=== PATIENT | male | born 1980 | race Caucasian/White ===

== ENCOUNTER 2018-08-23 10:48 | Day surgery (SDC) | payer OTHER ==
[2018-08-23] MEDS ORDERED: SUCCINYLCHOLINE CHLORIDE 100 MG/5 ML SYG IV (13:35)
[2018-08-23] MEDS ORDERED: PROPOFOL 20 ML (13:35)
[2018-08-23] MEDS ORDERED: CEFAZOLIN 1 GM INJ (13:35)
[2018-08-23] MEDS ORDERED: LIDOCAINE 100 MG SYRINGE (13:35)
[2018-08-23] MEDS ORDERED: ONDANSETRON 4 MG INJ (13:37)
[2018-08-23] MEDS ORDERED: ROCURONIUM 50 MG INJ (13:38)
[2018-08-23] MEDS ORDERED: FENTAnyl 50 MCG/ML VIAL IV ×2 (14:00)
[2018-08-23] MEDS ORDERED: DIPHENHYDRAMINE 50 MG INJ IV (14:00)
[2018-08-23] MEDS ORDERED: OXYCODONE/ACETAMINOPHEN (5/325) TAB PO ×2 (14:00)
[2018-08-23] MEDS ORDERED: MIDAZOLAM 1 MG/ML 2 ML INJ IV (14:00)
[2018-08-23] MEDS ORDERED: ONDANSETRON 4 MG INJ IV (14:00)
[2018-08-23] MEDS ORDERED: MEPERIDINE 25 MG INJ IV (14:00)
[2018-08-23] MEDS: OXYMETAZOLINE 0.05% 15 ML NAS SPRAY NASAL (14:06)
[2018-08-23] MEDS: FENTAnyl 50 MCG/ML VIAL IV (14:54)
[2018-08-23] MEDS: METOCLOPRAMIDE 10 MG INJ IV (14:54)
== END 2018-08-23 16:40 | disposition home or self-care (01) ==
LOC: SDS 10:48
DX: J38.3 Other diseases of vocal cords (principal)
CPT/HCPCS: 31541; 88305